=== PATIENT | female | born 1995 | race American Indian/Alaskan Native ===

== ENCOUNTER 2019-11-25 10:51 | Outpatient (CLI) | payer OTHER | END 2019-11-25 10:52 | disposition home or self-care (01) | LOC: LAB 10:51 | PROVIDERS: ATTEND Internal Medicine | DX: R00.0 Tachycardia, unspecified (principal) | CPT/HCPCS: 36415; 84443 ==

== ENCOUNTER 2019-12-22 13:45 | Emergency (ER) | payer OTHER ==
[2019-12-22 13:48] VITALS: BP 143/92
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
== END 2019-12-22 17:11 | disposition home or self-care (01) ==
LOC: ED 13:45
DX: Z04.1 Encounter for examination and observation following transport accident (principal); F17.200 Nicotine dependence, unspecified, uncomplicated; Z91.018 Allergy to other foods
CPT/HCPCS: 99282

== ENCOUNTER 2019-12-31 23:08 | Emergency (ER) | payer OTHER ==
[2019-12-31 23:53] VITALS: BP 136/96
--- NOTE | 2020-01-01 00:44 | Emergency Department Report ---
ED Palpitations HPI - General Chief Complaint: Arrhythmia/Palpitations Stated Complaint: HEART RACING Time Seen by Provider: 01/01/20 00:15 Source: patient Mode of arrival: Ambulatory Limitations: No Limitations - History of Present Illness Initial Comments: Patient is a 24-year-old female that presents emergency room with complaints of heart palpitations. Patient states he is been having intermittent heart palpitations for for 5 weeks. Patient states he is already seen a bead forming machine operator. Patient states she had a Holter monitor removed 2 weeks ago. Patient states the palpitations returned tonight when she was trying to go to sleep. Patient states she feels anxious. Patient states that her symptoms have resolved since she is come to the hospital. Patient that she is feeling much better. Patient denies shortness of breath. Patient denies chest pain. Patient denies fever and chills. Patient denies abdominal pain. Patient at this point is asymptomatic. Patient states she believes this is a panic attack or anxiety attack. Patient denies recent travel. Patient denies recent international travel. Patient denies exposure to the novel coronavirus. Patient denies sick contacts. Patient denies fever and chills. Patient denies cough. Patient denies diarrhea. Patient denies coming in contact with anybody with symptoms of the novel coronavirus. MD Complaint: rapid heart beat, "heart racing", palpitations Context: occured during rest Associated Symptoms: anxiety, feeling of impending doom. denies: chest pain, shortness of breath, syncope, near-syncope, nausea/vomiting, diaphoresis, cough, parasthesias, muscle cramps - Related Data Previous Rx's Medication Instructions Recorded Last Taken Type ALPRAZolam [Xanax TAB] 0.25 mg PO BID PRN #10 tablet 01/01/20 Unknown Rx Allergies Allergy/AdvReac Type Severity Reaction Status Date / Time apple Allergy Rash Verified 11/22/19 07:53 cucumber Allergy Shortness Verified 11/22/19 07:53 of Breath orange Allergy Rash Verified 11/22/19 07:53 ED Review of Systems ROS: Stated complaint: HEART RACING Other details as noted in HPI Constitutional: denies: chills, fever Eyes: denies: eye pain, eye discharge, vision change ENT: denies: ear pain, throat pain Respiratory: denies: cough, shortness of breath, wheezing Cardiovascular: palpitations. denies: chest pain Endocrine: no symptoms reported Gastrointestinal: denies: abdominal pain, nausea, diarrhea Genitourinary: denies: urgency, dysuria, discharge Musculoskeletal: denies: back pain, joint swelling, arthralgia Skin: denies: rash, lesions Neurological: denies: headache, weakness, paresthesias Psychiatric: anxiety. denies: depression Hematological/Lymphatic: denies: easy bleeding, easy bruising ED Past Medical Hx - Past Medical History Previous Medical History?: Yes Hx Psychiatric Treatment: Yes (Anxiety) Additional medical history: Irregular HR - Surgical History Past Surgical History?: No - Family History Family history: no significant - Social History Smoking Status: Never Smoker Substance Use Type: None - Medications Home Medications: Home Medications Medication Instructions Recorded Confirmed Last Taken Type ALPRAZolam [Xanax TAB] 0.25 mg PO BID PRN #10 tablet 01/01/20 Unknown Rx ED Physical Exam - General Limitations: No Limitations General appearance: alert, in no apparent distress - Head Head exam: Present: atraumatic, normocephalic - Eye Eye exam: Present: normal appearance - ENT ENT exam: Present: mucous membranes moist - Neck Neck exam: Present: normal inspection - Respiratory Respiratory exam: Present: normal lung sounds bilaterally. Absent: respiratory distress - Cardiovascular Cardiovascular Exam: Present: regular rate, normal rhythm, normal heart sounds. Absent: bradycardia, tachycardia, irregular rhythm, systolic murmur, diastolic murmur, rubs, gallop - GI/Abdominal GI/Abdominal exam: Present: soft, normal bowel sounds - Extremities Exam Extremities exam: Present: normal inspection - Back Exam Back exam: Present: normal inspection - Neurological Exam Neurological exam: Present: alert, oriented X3 - Psychiatric Psychiatric exam: Present: normal affect, normal mood - Skin Skin exam: Present: warm, dry, intact, normal color. Absent: rash ED Course Vital Signs 12/31/19 23:51 Temperature 98 F Pulse Rate 92 H Respiratory 16 Rate Blood Pressure 136/96 [Left] O2 Sat by Pulse 100 Oximetry - Reevaluation(s) Reevaluation #1: I discussed all results and clinical findings with patient. I discussed plan of care with patient. Patient agrees with plan of care. Patient is stable for discharge. Patient will be discharged home. Patient given discharge instructions. Patient voiced understanding of discharge instructions. 01/01/20 00:42 ED Medical Decision Making - EKG Data -: EKG Interpreted by Me EKG shows normal: sinus rhythm, axis, intervals, QRS complexes, ST-T waves Rate: normal - Medical Decision Making Patient is a 24-year-old female that presents emergency room with complaints of palpitations, anxiety and possible panic attack. Patient's symptoms only take place when she is trying to sleep. Patient states she feels like her mind is racing when she goes to sleep. Patient states her mind races and she develops palpitations and racing heart rate. Patient's clinical findings are consistent with a panic attack and anxiety. Patient will be given Xanax. Patient is already seen a bead forming machine operator. Patient will need to follow-up with her bead forming machine operator and her primary care for further evaluation treatment. Patient's Holter monitor was removed 2 weeks ago. Patient will need to follow-up with bead forming machine operator for results of this. She does not require any further emergency medical services. Patient is stable to follow-up as an outpatient. Patient discharged home. - Differential Diagnosis Palpitations, anxiety, panic attack. Critical care attestation.: If time is entered above; I have spent that time in minutes in the direct care of this critically ill patient, excluding procedure time. ED Disposition Clinical Impression: Anxiety, Panic attack, Palpitations Disposition: DC-01 TO HOME OR SELFCARE Is pt being admited?: No Does the pt Need Aspirin: No Condition: Stable Instructions: Panic Disorder (ED), Anxiety (ED), Stress (ED), Palpitations (ED) Additional Instructions: Patient to follow-up with primary care in 2 to 3 days. Patient to follow-up with cardiology in 2 to 3 days. Patient to rest. Patient to increase water. Patient to avoid strenuous exercise or heavy lifting until cleared by child care attendant and primary care. Patient to take Tylenol or ibuprofen as needed for pain. Patient to take meds as directed. Patient to return to the ER if condition worsens, changes or new symptoms arise. Prescriptions: ALPRAZolam [Xanax TAB] 0.25 mg PO BID PRN #10 tablet PRN Reason: Anxiety Referrals: PRIMARY CARE, [Primary Care Provider] - 2-3 Days Time of Disposition: 00:45
== END 2020-01-01 00:54 | disposition home or self-care (01) ==
LOC: ED 23:08
DX: R00.2 Palpitations (principal); F41.9 Anxiety disorder, unspecified; F41.0 Panic disorder [episodic paroxysmal anxiety]; Z79.899 Other long term (current) drug therapy; Z91.018 Allergy to other foods
CPT/HCPCS: 93005; 99282